=== PATIENT | male | born 1945 | race Caucasian/White ===

== ENCOUNTER 2017-08-06 17:08 | Emergency (ER) | payer OTHER, SELFPAY ==
--- NOTE | 2017-08-06 17:34 | DI.RAD.S_ITS ---
PROCEDURE: XR FINGER LT MIN 2V INDICATIONS: bandsaw injury to distal end of 2 nd digit TECHNIQUE: AP hand, 2 views of the second finger(s) acquired. COMPARISON: None. FINDINGS: Bones: No fractures or dislocations. No suspicious bony lesions. Soft tissues: No suspicious soft tissue calcifications. IMPRESSION: No fracture or foreign body seen. Dictated by: David Valdivia M.D. on 08/06/2017 at 18:01 Approved by: David Valdivia M.D. on 08/06/2017 at 18:01
[2017-08-06 17:36] VITALS: BP 147/71; PULSE 70; RESP 18; TEMP 36.4; O2SAT 98
--- NOTE | 2017-08-06 17:41 | PC.NURSE ---
approx 3 cm lac to lt 2nd digit from band saw, bleeding controlled, distal cms intact, pt reports tdap utd
--- NOTE | 2017-08-06 18:09 | ED_ITS ---
HPI - Extremity Injury (Upper) General Chief Complaint: Extremity Injury, Upper Stated Complaint: wound index finger left hand from a band saw Time Seen by Provider: 08/06/17 17:42 Source: patient Mode of arrival: ambulatory Limitations: no limitations History of Present Illness HPI narrative: 71-year-old male here for evaluation of left index finger injury. Patient was using a band saw to open a plastic package when he cut his finger. Patient states he is up-to-date on his tetanus. He came into the emergency department for further evaluation and treatment. Related Data Home Medications Medication Instructions Recorded Confirmed tamsulosin [Flomax] #0 09/14/16 Allergies Allergy/AdvReac Type Severity Reaction Status Date / Time Penicillins [PENICILLINS] Allergy Unknown Unverified 06/05/17 12:11 Review of Systems Constitutional Denies chills, Denies fever(s), Denies lethargy and Denies weakness Musculoskeletal Comments: Pain to the tip of the left index finger Integumentary/Breasts Comments: cut the tip of his index finger left hand Neurologic Denies weakness Comments: no numbness and tingling left hand Hematologic/Lymphatic Denies easy bruising Exam Initial Vital Signs Initial Vital Signs: Vital Signs Temperature 97.6 F 08/06/17 17:36 Pulse Rate 70 08/06/17 17:36 Respiratory Rate 18 08/06/17 17:36 Blood Pressure 147/71 H 08/06/17 17:36 Pulse Oximetry 98 08/06/17 17:36 Cardio Pulses: radial pulses present Skin Other: patient with a 3 cm laceration to the palmar aspect of his left index finger distal to the PIP joint. Does not involve the nail bed. Neuro Other: sensation intact to light touch left upper extremity Extrem Other: Full range of motion of left index finger MCP PIP PIP joint Procedures Laceration Repair Laceration 1: Site: hand ( left index finger) Side (If applicable): left Size (cm): 3 Description: linear Depth: simple, single layer Local Anesthetic: lidocaine 1% Amount of anesthesia used (mL): 2 Pre-repair: wound explored, irrigated extensively and deep structures intact Skin layer closed with: nylon Size (cm): 4-0 Number of sutures: 7 Technique: simple, interrupted Course Orders Ordered: Discontinued Medications Bacitracin (Bacitracin) 1 applic TOP NOW ONE Stop: 08/06/17 19:02 Vital Signs - 8 hr 08/06/17 17:36 Temperature 97.6 F Pulse Rate 70 Respiratory Rate 18 Blood Pressure 147/71 H Pulse Oximetry 98 MDM - Extremity Injury (Upper) Imaging Data left and x-ray: Radiologist's impression: PROCEDURE: XR FINGER LT MIN 2V INDICATIONS: bandsaw injury to distal end of 2 nd digit TECHNIQUE: AP hand, 2 views of the second finger(s) acquired. COMPARISON: None. FINDINGS: Bones: No fractures or dislocations. No suspicious bony lesions. Soft tissues: No suspicious soft tissue calcifications. IMPRESSION: No fracture or foreign body seen. Dictated by: David Valdivia M.D. on 08/06/2017 at 18:01 [facility] Narrative Medical decision making narrative: neurovascularly intact. Up-to-date on tetanus. Wound closed as above. Patient is given care instructions. He is given return precautions. He expressed understanding and agreement with plan patient informed that there would be a scar. Discharge Plan Departure Patient Disposition: Home, Self-Care Clinical Impression: Finger laceration Discharge Date/Time: 08/06/17 19:17 Interventions: ED Discharge Assessment Last Done: 08/06/17 19:17 Instructions: How to Care for a Laceration After Repair, How to Care for a Surgical Wound-Stitches Activity Restrictions/Additional Instructions: the stitches do need to be removed in 7-10 days. Keep your finger clean and dry. You can shower like normal and wash your hands with soap and water however do not soak your hand anything. Return to the emergency department for any new symptoms, redness, worsening pain, or any other signs of infection. Prescriptions: No Action tamsulosin [Flomax] 0.4 MG capsule,extended release 24hr Qty: 0 RF: 0
== END 2017-08-06 19:17 | disposition home or self-care (01) ==
PROVIDERS: Emergency Provider Emergency Medicine; Family Provider Internal Medicine; PCP Internal Medicine
DX: S61.211A Laceration without foreign body of left index finger without damage to nail, initial encounter (principal); W31.2XXA Contact with powered woodworking and forming machines, initial encounter
CPT/HCPCS: 12002; 73140; 99282; 99283

== ENCOUNTER → 2017-10-17 07:33 | Outpatient (CLI) | payer OTHER, SELFPAY ==
[2017-10-17 08:17] LABS: Add Manual Diff / Slide Review NO; Basophils Percent Auto 0.8 % (0-2); Eosinophils Percent Auto 2.5 % (2-4); Hematocrit 41.4 % (41-53); Hemoglobin 14.2 g/dL (13.5-17.5); Lymphocytes Percent Auto 11.1 % (25-40); Mean Corpuscular HGB Conc 34.2 % (30-36); Mean Corpuscular Hemoglobin 27.9 PG (26-34); Mean Corpuscular Volume 81.6 fL (80-100); Monocytes Percent Auto 11.8 % (3-14); Neutrophils Absolute Auto 3900 /uL (3000-5900); Neutrophils Percent Auto 73.8 % (50-75); Platelet Count 302 X10^3/uL (150-400); Red Blood Cell Count 5.08 X10^6/uL (4.5-5.9); Red Cell Distribution Width 15.7 % (11.6-14.8); White Blood Cell Count 5.2 X10^3/uL (4.5-11.0)
[2017-10-17 08:32] LABS: Alanine Aminotransferase 22 IU/L (21-72); Albumin 4.2 g/dL (3.5-5.0); Albumin Globulin Ratio 1.1 (1.0-2.8); Alkaline Phosphatase 93 U/L (38-126); Aspartate Aminotransferase 27 IU/L (17-59); BUN Creatinine Ratio 22.5 (6-22); Bilirubin Total 0.5 mg/dL (0.2-1.3); Blood Urea Nitrogen 18 mg/dL (9-20); Calcium 9.4 mg/dL (8.4-10.2); Carbon Dioxide 34 mmol/L (22-32); Chloride 94 mmol/L (98-107); Cholesterol 167 mg/dL (140-199); Estimated Glomerular Filt Rate > 60.0 mL/min (>60); Globulin 3.9 g/dL (1.7-4.1); Glucose 102 mg/dL (80-110); HDL Cholesterol 47 mg/dL (40-60); HEMOLYSIS < 15 (0-50); LDL Cholesterol Calculated 111 mg/dL (<100); Potassium 4.9 mmol/L (3.4-5.1); Sodium 133 mmol/L (137-145); Total Protein 8.1 g/dL (6.3-8.2); Triglycerides 47 mg/dL (35-150)
[2017-10-17 08:59] LABS: Thyroid Stimulating Hormone 2.64 uIU/mL (0.47-4.68)
[2017-10-17 11:48] LABS: B Type Natriuretic Peptide 99.9 (<100)
== END ==
PROVIDERS: Family Provider Internal Medicine; PCP Internal Medicine; Visit Provider Internal Medicine Cardiovascular Disease
DX: R00.2 Palpitations (principal); R06.09 Other forms of dyspnea; R01.1 Cardiac murmur, unspecified; Z13.220 Encounter for screening for lipoid disorders
CPT/HCPCS: 36415; 80053; 80061; 83735; 83880; 84443; 85025

== ENCOUNTER 2018-04-02 13:56 | Day surgery (SDC) | payer OTHER, SELFPAY ==
--- NOTE | 2018-04-02 | PATH_ITS ---
[facility] Accession Number: [id number] . 01 Material submitted: . PART A: CECAL POLYP PART B: CECAL POLYP PART C: ASCENDING COLON POLYP . 02 Diagnosis: A. Cecal Polyp: Tubular adenoma; negative for high-grade dysplasia. . B. Cecum, Polyp: Multiple portions of tubular adenoma; negative for high-grade dysplasia. . C. Ascending Colon Polyp: Tubular adenoma; negative for high-grade dysplasia. . MRV/04/07/2018 . 02 Electronically signed: . Ethel Pham MD, Pathologist NPI- [id number] . 01 Gross description: . Part A: CECAL POLYP: Received in formalin is 1 fragment(s) of adler, soft tissue measuring 1.3 x 0.3 x 0.3 cm submitted entirely in 1 cassette(s) Part B: CECAL POLYP: Received in formalin are multiple fragment(s) of adler, soft tissue measuring 1.7 x 1.2 x 0.3 cm in aggregate submitted entirely in 1 cassette(s) Part C: ASCENDING COLON POLYP: Received in formalin are 2 fragment(s) of adler, soft tissue measuring 0.5 x 0.2 x 0.2 cm to 0.4 x 0.4 x 0.2 cm submitted entirely in 1 cassette(s) /CKI /CKI . 02 Pathologist provided ICD-10: K63.5 . 02 CPT . 944123, 789917, 890217 Performed at: 01 [facility] [address] [id number] MD Aime Can MD Phone: [phone] Performed at: 02 [facility] [address] [place], [place] [id number] MD Lauren Darby MD Phone: [phone]
--- NOTE | 2018-04-02 12:50 | P.HP_ITS ---
History of Present Illness Date Patient Seen: 04/02/18 Chief complaint: [id number] SCREENING COLONOSCOPY Narrative: 72-year-old male seen at our clinic for preop evaluation on 03/18/2017. He has a personal history of colon polyps and a family history of colon cancer in his father. His COPD appears stable at this time and there had been no significant changes to his clinical condition since his office visit. Meds Home Medications Medication Instructions Recorded Confirmed Type Cialis 2.5 mg PO DAILY 04/02/18 04/02/18 History omeprazole 20 mg PO DAILY 04/02/18 04/02/18 History rosuvastatin 20 mg PO DAILY 04/02/18 04/02/18 History Allergies Allergy/AdvReac Type Severity Reaction Status Date / Time iodine Allergy Severe Hives Verified 04/02/18 14:20 Penicillins [PENICILLINS] Allergy Unknown Verified 04/02/18 14:20 morphine AdvReac Severe Hallucinati Verified 04/02/18 14:20 ng Exam Narrative Exam Narrative: General: Patient is well developed, not in apparent distress Cardiovascular: Regular rate and rhythm, no murmurs, rubs, or gallops; no evidence of edema; no palpable abdominal aortic aneurysm Gastrointestinal: Normoactive bowel sounds, soft, nontender, nondistended, no rebound tenderness, no hepatosplenomegaly, no evidence of hernia Assessment & Plan Assessment Narrative: 72-year-old male with history of COPD who is here for colon polyp surveillance. There is a family history of colon cancer in his father. Last colonoscopy performed in 2013 showed no polyps Regarding the procedure(s), the risks and potential complications, benefits, and alternatives (including not doing the procedure) were discussed with the dylan montes. The risks include but are not limited to bleeding, splenic injury, infection, perforation which may require surgical intervention, missed lesions, and adverse reactions to sedative medicines. After a question and answer period, the patient agreed to proceed with the procedure(s) and gives informed consent.
[2018-04-02 14:11] VITALS: BMI 20.2
[2018-04-02 14:17] VITALS: BP 158/81; PULSE 95; RESP 16; TEMP 36.1; O2SAT 95
[2018-04-02] MEDS: SODIUM CHLORIDE 0.9% 1,000 ML 70 ML IV (14:20)
[2018-04-02] MEDS: fentaNYL 250 MCG/5 ML INJ IV (15:00)
[2018-04-02] MEDS: MIDAZOLAM 5 MG/5 ML VIAL IV (15:01)
[2018-04-02 15:28] VITALS: BP 124/77; PULSE 82; RESP 22; TEMP 36.1; O2SAT 98
[2018-04-02 15:33] VITALS: BP 127/75; PULSE 97; RESP 14; O2SAT 98
--- NOTE | 2018-04-02 15:34 | P.OP.ENDO_ITS ---
Operative Date/Time/Diagnoses Date of procedure: 04/02/18 Procedure Notes Procedure in detail: Surgeon: Artemio Valdivia MD Procedure: Colonoscopy with endoscopic mucosal resection and biopsy Preoperative diagnosis: Colon polyp surveillance Postoperative diagnosis: 3 colon polyps status post polypectomy and EMR, left- sided diverticulosis, grade 2 internal hemorrhoids Medications: Conscious sedation using 5 mg IV of Midazolam and 250 mcg IV of Fentanyl Preanesthesia Assessment An H and P was performed/updated and the Px?s ASA class is 2. The procedure was discussed in detail with the patient. The potential risks and complications including infection, bleeding, missed lesions, perforation, need for surgery in case of perforation, prolonged hospital stay, and were explained. A brief question and answer period was allotted and once all questions were answered, informed consent was obtained. The patient was brought back to the procedure room and placed on standard monitoring. The patient?s vital signs were monitored continuously throughout the entire procedure. Prior to starting, a timeout was performed to confirm the patient?s identity, allergies, medications, and procedure. Procedure in detail The patient was placed in left lateral decubitus position and once adequate sedation was obtained a BETH was performed. The digital rectal examination did not reveal any palpable lesions. The tip of the colonoscope was placed in the anal canal and advanced to the sigmoid colon where there was some difficulty maneuvering due to tight angulations and limited mobility. The tip of the colonoscope was able to pass this area with scope reduction and torsion and was advanced all the way to the cecum which was identified by the appendiceal orifice and the ileocecal valve. Careful examination of all garcia of the colon was performed with irrigation of any residual stool. In the cecum, there was note of a 6 mm sessile polyp which was removed in its entirety by means of cold snare. Resection and retrieval were complete with minimal bleeding In the cecum, there was note of a 20 mm sessile polyp which was removed by means of endoscopic mucosal resection. Saline/spot ink lift was performed to define the borders of the polyp and it was removed by means of hot snare. There was no residual bleeding at the resection site. Retrieval of the polyp was complete In the ascending colon, there is note of a 2 mm sessile polyp which was removed by means of cold Jumbo forceps. Resection and retrieval was complete with minimal bleeding. In the left colon, there is note of multiple medium to large diverticula Retroflexion was performed in the colon which revealed grade 2 internal hemorrhoids The patient tolerated the procedure well and will be brought back to the recovery area to be discharged once criteria are met. The prep was judged to be good/excellent and adequate to identify polyps less than 5 mm. The withdrawal time was 16 min. The total physician intraservice time was 31 min. Complications There were no complications and estimated blood loss was minimal. Recommendations: Resume previous diet Continue outPx medications Avoid aspirin or NSAID use for the next 2 weeks Follow up pathology results Repeat colonoscopy in 1 year An emergency contact number was given to the patient for any complications related to the procedure
--- NOTE | 2018-04-02 15:35 | PM.DS.1 ---
History of Present Illness Chief complaint: [id number] SCREENING COLONOSCOPY Narrative: 72-year-old male seen at our clinic for preop evaluation on 03/18/2017. He has a personal history of colon polyps and a family history of colon cancer in his father. His COPD appears stable at this time and there had been no significant changes to his clinical condition since his office visit. Discharge Providers Primary care physician: Shaun Forbes MD Discharge provider: Artemio Valdivia MD Discharge Date: 04/02/18 Exam Vital Signs (past 8 hours): - 04/02/18 14:17 04/02/18 15:28 Temperature 96.9 F L 97.0 F L Pulse Rate 95 H 82 Respiratory Rate 16 22 Blood Pressure 158/81 H 124/77 Pulse Oximetry 95 98 Oxygen Delivery Method Room Air Narrative Exam Narrative: General: Patient is well developed, not in apparent distress Cardiovascular: Regular rate and rhythm, no murmurs, rubs, or gallops; no evidence of edema; no palpable abdominal aortic aneurysm Gastrointestinal: Normoactive bowel sounds, soft, nontender, nondistended, no rebound tenderness, no hepatosplenomegaly, no evidence of hernia Discharge Plan Discharge Plan Patient Disposition: Home Discharge comment: you will be discharged with a copy of your procedure report Discharge Med Rec/Prescriptions Prescriptions: Continued omeprazole 20 mg PO DAILY RF: 0 rosuvastatin 20 mg PO DAILY RF: 0 Cialis 2.5 mg PO DAILY RF: 0 Follow up/Referrals: Shaun Forbes MD [Primary Care Provider] - Discharge Orders: Discharge (Order); Ordered 04/02/18 Ordered By: Artemio Valdivia Provider Discharge Instructions Diet: Diet as Tolerated Visit Report/Discharge Packet Stand Alone Forms: Colonoscopy Result: [facility], Surgery Discharge Discharge Data Primary Care Provider: Shaun Forbes V Attending Provider: Artemio Valdivia
[2018-04-02 15:39] VITALS: BP 114/64; PULSE 75; RESP 15; TEMP 36.3; O2SAT 99
[2018-04-02 15:55] VITALS: BP 140/67; PULSE 79; RESP 17; TEMP 36.2; O2SAT 97
== END 2018-04-02 16:04 | disposition home or self-care (01) ==
PROVIDERS: Family Provider Internal Medicine; PCP Internal Medicine; Visit Provider Internal Medicine Gastroenterology
PROC: 0DJD8ZZ Inspection of Lower Intestinal Tract, Via Natural or Artificial Opening Endoscopic (ICD-10-PCS; CPT 45378; principal; 2018-04-02 15:00)
DX: Z86.010 Personal history of colon polyps (principal); Z80.0 Family history of malignant neoplasm of digestive organs; J44.9 Chronic obstructive pulmonary disease, unspecified; K57.30 Diverticulosis of large intestine without perforation or abscess without bleeding; K64.1 Second degree hemorrhoids; D12.0 Benign neoplasm of cecum; D12.2 Benign neoplasm of ascending colon
CPT/HCPCS: 45390; 45385; J2250; J3010

== ENCOUNTER 2018-06-16 17:15 | Emergency (ER) | payer OTHER, SELFPAY ==
[2018-06-16 17:17] VITALS: BP 168/81; PULSE 97; RESP 24; TEMP 38.2; O2SAT 96
--- NOTE | 2018-06-16 17:33 | DI.RAD.S_ITS ---
PROCEDURE: XR CHEST 1V INDICATIONS: SHORTNESS OF BREATH TECHNIQUE: One view of the chest was acquired. COMPARISON: [facility], CHEST 2 VIEW, 10/02/2016, 9:50. [facility], CHEST 2 VIEW, 05/13/2017, 11:21. FINDINGS: Surgical changes and devices: None. Lungs and pleura: Mild loss is seen on the left side. There is stable left lung apex pleural thickening seen. There is stable pleural thickening seen on the left inferiorly. The lungs are hyperexpanded. Mediastinum: Mediastinal contours appear normal. Heart size is normal. Bones and chest wall: No suspicious bony lesions. Age-appropriate bony degenerative changes are seen. Overlying soft tissues appear unremarkable. IMPRESSION: Stable plain film examination demonstrating left-sided pleural thickening, with likely scarring at the lung apex and a chronic left-sided pleural effusion. The scheduled chest CT is expected provide additional diagnostic information. Dictated by: Mani Pearson M.D. on 06/16/2018 at 17:15 Approved by: Mani Pearson M.D. on 06/16/2018 at 17:16
--- NOTE | 2018-06-16 17:38 | DI.CT.S_ITS ---
PROCEDURE: CT ANGIO CHEST PE PROTOCOL INDICATIONS: recent flight from [place], hypoxia, hx pulm.fibrosis TECHNIQUE: After the administration of intravenous contrast, 2 mm thick sections acquired from the pulmonary apices to the posterior costophrenic angles. 3-dimensional maximum intensity projection (MIP) coronal and sagittal reformats were then acquired through the thorax. For radiation dose reduction, the following was used: automated exposure control, adjustment of mA and/or kV according to patient size. COMPARISON: [facility], , CHEST 2 VIEW, 05/13/2017, 11:21. [facility], , CHEST 2 VIEW, 10/02/2016, 9:50. [facility] , CT, CHEST W/O CONTRAST, 05/16/2010, 15:33. [facility], , XR CHEST 1V, 06/16/2018, 17:45. FINDINGS: Image quality: Excellent. Pulmonary arteries: Pulmonary arteries are normal in size, and demonstrate no intraluminal filling defects to suggest central pulmonary embolism. Lungs and pleura: There is volume loss in the left hemithorax. There are calcified pleural plaques, predominantly involving the left hemithorax. Bilateral lower lobe loculated pleural effusions are present. A loculated pleural effusion is also seen in the left upper breast. There is left lower lobe round atelectasis. A 7 mm nodule subpleural is present in the right middle lobe, not present on 05/16/1010. Central and peripheral airways are patent. Mediastinum: Heart size is normal, without pericardial effusion. Mildly enlarged mediastinal or right hilar are present measuring up to 1.2 cm in short axis. Thoracic aorta is normal in caliber and enhancement. Esophagus is normal in caliber. There is a small hiatal hernia. Bones and chest wall: No suspicious bony lesions. Old rib fractures are noted bilaterally. Thyroid gland is normal. No axillary or supraclavicular adenopathy. Abdomen: Visualized upper abdominal solid organs appear normal in the early arterial phase of enhancement. There are calcified granulomas in spleen. IMPRESSION: 1. No evidence for central pulmonary embolism. 2. Bilateral lower lobe and left upper lobe loculated pleural effusions. Cannot rule out emphysematous. 3. Calcified pleural plaques bilaterally, probably related to asbestos exposure. Recommend clinical correlation. 4. A 7 mm subpleural nodule in the right middle lobe. Please see enclosed followup recommendation. 5. Mild mediastinal and right hilar lymphadenopathy, most likely reactive. 5. Remote granulomatous infection of spleen. 6. Small hiatal hernia. Fleischner Society criteria for SOLID lung nodule followup. Nodule size (mm)Low-risk patientHigh-risk patient?4No follow-up neededFollow-up at 12 mo; if no change, no further follow-up>[id number] CT at 12 mo; if no change, no further follow-up needed.Initial follow-up CT at 6-12 mo, then 18-24 mo if no change. >6-8Initial follow-up CT at 6-12 mo, then 18-24 mo if no change. Initial follow-up CT at 3-6 mo, then 9-12 mo and 24 mo if no change. >8Follow-up CT at 3, 9, 24 mo. Or PET and/or biopsy.Same as for low-risk pts. Fleischner Society criteria for SUB-SOLID lung nodule followup. Solitary pure ground-glass nodules5 mm or lessNo followup needed. >5 mm3 mo follow-up CT to confirm persistence. Then annual CT for 3 years. Part-solid nodules3 mo follow-up CT to confirm persistence. If persistent with solid component <5 mm, annual CT for at least 3 years. If solid component is 5 mm or more, biopsy or surgical resection. Consider PET-CT for lesions > 10 mm. Multiple sub-solid nodulesPure ground glass nodules [address] at 2 and 4 years. Pure ground glass nodules >5 mm without dominant lesion. [address] to confirm persistence, then annual followup CT for at least 3 years. Dominant nodule(s) with part-solid or solid component. [address] to confirm persistence. If persistent, consider biopsy or surgical resection, jojo if lesions have >5 mm solid component. Dictated by: Roni Reveles M.D. on 06/16/2018 at 19:08 Approved by: Roni Reveles M.D. on 06/16/2018 at 19:29
[2018-06-16] MEDS: SODIUM CHLORIDE 0.9% 1,000 ML 1000 ML IV (17:51)
[2018-06-16] MEDS: diphenhydrAMINE 50 MG/ML VIAL 25 MG IV (17:52)
[2018-06-16] MEDS: methylPREDNISolone 125 MG/2 ML VIAL IV (17:53)
[2018-06-16 18:17] LABS: Add Manual Diff / Slide Review NO; Basophils Absolute Auto 0 /uL (0-100); Basophils Percent Auto 0.5 % (0-2); Eosinophils Absolute Auto 0 /uL (0-450); Eosinophils Percent Auto 0.3 % (2-4); Hematocrit 40.8 % (41-53); Hemoglobin 13.6 g/dL (13.5-17.5); Lymphocytes Absolute Auto 300 /uL (1100-4500); Lymphocytes Percent Auto 6.1 % (25-40); Mean Corpuscular HGB Conc 33.4 % (30-36); Mean Corpuscular Hemoglobin 26.8 PG (26-34); Mean Corpuscular Volume 80.2 fL (80-100); Monocytes Absolute Auto 500 /uL (0-900); Monocytes Percent Auto 10.8 % (3-14); Neutrophils Absolute Auto 4000 /uL (1500-7000); Neutrophils Percent Auto 82.3 % (50-75); Platelet Count 219 X10^3/uL (150-400); Red Blood Cell Count 5.09 X10^6/uL (4.5-5.9); Red Cell Distribution Width 15.4 % (11.6-14.8); White Blood Cell Count 4.9 X10^3/uL (4.5-11.0)
[2018-06-16 18:18] LABS: INR 1.2 (0.9-1.3); Prothrombin Time 13.9 SECONDS (10.1-12.7)
[2018-06-16 18:21] LABS: PTT Partial Thromboplastin Tim 38 SECONDS (26.4-36.2)
[2018-06-16 18:23] LABS: B Type Natriuretic Peptide 116 (<100)
[2018-06-16 18:26] LABS: Alanine Aminotransferase 15 IU/L (21-72); Albumin 4.2 g/dL (3.5-5.0); Albumin Globulin Ratio 1.1 (1.0-2.8); Alkaline Phosphatase 86 U/L (38-126); Aspartate Aminotransferase 29 IU/L (17-59); Bilirubin Total 0.4 mg/dL (0.2-1.3); Blood Urea Nitrogen 16 mg/dL (9-20); Calcium 8.6 mg/dL (8.4-10.2); Carbon Dioxide 28 mmol/L (22-32); Chloride 91 mmol/L (98-107); Estimated Glomerular Filt Rate > 60.0 mL/min (>60); Globulin 3.9 g/dL (1.7-4.1); Glucose 106 mg/dL (80-110); HEMOLYSIS < 15 (0-50); Lactate (Lactic Acid) 1.1 mmol/L (0.7-2.1); Potassium 4.5 mmol/L (3.4-5.1); Sodium 129 mmol/L (137-145); Total Protein 8.1 g/dL (6.3-8.2)
[2018-06-16 18:28] VITALS: BP 157/83; PULSE 84; RESP 22; O2SAT 99
--- NOTE | 2018-06-16 18:28 | ED.SOB ---
HPI - SOB/Dyspnea General Chief Complaint: Shortness of Breath/Dyspnea Stated Complaint: weakness and trouble breathing Time Seen by Provider: 06/16/18 17:38 Source: patient and family Mode of arrival: ambulatory Limitations: no limitations History of Present Illness A 72-year-old male nonsmoker with history of bladder cancer and chronic, mild pleural effusions presents with day or 2 of some runny nose and cough and exertional shortness of breath. he denies any chest pain. He is not dizzy nor weak or lightheaded. He denies any fever or chills. He has had no nausea, vomiting or diarrhea. He has felt a bit under the weather and has had a decreased appetite. He denies any rashes. He has no cough dysuria, frequency or urgency. He denies any history of blood clots but does have some recent travel. On presentation patient pulse oximetry noting dip into the upper 80s which responded quickly to nasal cannula at 1 L MD Complaint: shortness of breath and cough Onset (ago): day(s) Context: recent travel Severity: moderate Consistency/Duration: constant Relieving factors: oxygen and rest Exacerbating factors: exertion Known history of: COPD Treatment prior to arrival: none Related Data Home oxygen amount: none Home Medications Medication Instructions Recorded Confirmed omeprazole 20 mg PO DAILY #0 04/02/18 06/16/18 rosuvastatin 20 mg PO DAILY #0 04/02/18 06/16/18 tadalafil [Cialis] 2.5 mg PO DAILY PRN #0 04/02/18 06/16/18 acetaminophen 650 mg PO .ONCE 06/16/18 06/16/18 multivitamin 1 tab PO DAILY 06/16/18 06/16/18 naproxen sodium [Aleve] 220 mg PO .ONCE 06/16/18 06/16/18 Allergies Allergy/AdvReac Type Severity Reaction Status Date / Time iodine Allergy Severe Hives Verified 04/02/18 14:20 Penicillins [PENICILLINS] Allergy Unknown Verified 04/02/18 14:20 morphine AdvReac Severe Hallucinati Verified 04/02/18 14:20 ng Review of Systems Constitutional Denies chills, Denies fever(s), Denies lethargy and Denies weakness Eyes Denies change in vision, Denies eye discharge, Denies irritation and Denies loss of vision ENT Ears, Nose, Mouth, and Throat: Denies change in voice, Denies neck pain and Denies sore throat Cardiovascular Denies chest pain, Denies irregular heart rhythm, Denies lightheadedness, Denies palpitations, Reports dyspnea, Reports dyspnea on exertion and Denies orthopnea Respiratory Denies cough, Reports dyspnea, Reports dyspnea on exertion and Denies wheezing Gastrointestinal Gastrointestinal: Denies abdominal pain, Denies change in bowel habits, Denies diarrhea, Denies nausea and Denies vomiting Genitourinary Denies hematuria, Denies flank pain, Denies urinary incontinence and Denies urinary urgency Musculoskeletal Denies neck pain Integumentary/Breasts Denies pruritus, Denies erythema, Denies rash and Denies wounds Neurologic Denies confusion, Denies loss of vision and Denies weakness Psychiatric Denies anxiety, Denies confusion, Denies depression, Denies homicidal ideation and Denies suicidal ideation Endocrine Denies palpitations Hematologic/Lymphatic Denies easy bruising Allergic/Immunologic Denies wheezing [facility] Social History household members: spouse Smoking Status: Never smoker Social History household members: spouse Smoking Status: Never smoker Exam Narrative Exam Narrative: GENERAL: 72M appears to be a bit SOB, HEAD: Atraumatic. Normocephalic. No temporal or scalp tenderness. EYES: Pupils equal round and reactive. Extraocular motions intact. No scleral icterus. No injection or drainage. ENT: Nose without bleeding, purulent drainage or septal hematoma. Throat without erythema, tonsillar hypertrophy or exudate. Uvula midline. Airway patent. NECK: Trachea midline. No JVD or lymphadenopathy. Supple, nontender, no meningeal signs. CARDIOVASCULAR: Regular rate and rhythm without murmurs, gallops, or rubs. RESPIRATORY: Clear to auscultation. Breath sounds equal bilaterally. No wheezes, rales, or rhonchi. GASTROINTESTINAL: Abdomen soft, non-tender, nondistended. No hepato-splenomegaly, or palpable masses. No guarding. EXTREMITIES: No clubbing, cyanosis, or edema. No joint tenderness, effusion, or edema noted. BACK: Nontender without deformity or crepitance. No flank tenderness. NEURO: AOx3. SKIN: No rash or erythema. Initial Vital Signs Initial Vital Signs: Vital Signs Temperature 100.8 F H 06/16/18 17:17 Pulse Rate 97 H 06/16/18 17:17 Respiratory Rate 24 06/16/18 17:17 Blood Pressure 168/81 H 06/16/18 17:17 Pulse Oximetry 96 06/16/18 17:17 Const General: cooperative and well developed Nutritional Appearance: well nourished Orientation: alert, awake, oriented x3 and not confused HENSC Head: normocephalic and atraumatic Ears: external ears normal and TM's normal bilaterally Nose: external nose normal and No nasal discharge Face and sinus: sinuses nontender, face symmetric, no sinus tenderness and No dry mucous membranes Mouth: oral mucosae normal and moist mucous membranes Teeth and gingiva: dentition normal Throat: tonsils normal and uvula midline Eyes General: appearance normal, both eyes and all related structures Eyelids: eyelids normal Conjunctivae: conjunctivae normal Sclera: sclerae normal Pupils: PERRL EOM: EOM intact bilaterally Neck Neck: normal visual inspection, trachea midline, No lymphadenopathy, No midline deformity and No JVD Lymphatic: No lymphedema Chest Chest: normal inspection of the chest Resp Effort & Inspection: normal respiratory effort, able to speak in complete sentences, no respiratory distress and no use of accessory muscles Auscultation: clear to auscultation bilaterally, no rales, no rhonchi and no wheezes Cardio Rate: regular rate Rhythm: regular rhythm Heart Sounds: no click, no gallops, no murmurs and no rubs Pulses: normal peripheral pulses GI Inspection: non-distended Palpation: soft, no hepatosplenomegaly, No guarding, No pulsatile mass and No tender Auscultation: normal bowel sounds Back/Spine/Pelvis Back: No CVA tenderness Cervical Spine: cervical ROM normal and No pain with cervical ROM Thoracic/Lumbar Spine: thoracic and lumbar spine normal to inspection Skin General: no rashes or lesions noted, No jaundice and No petechiae Neuro General: alert, oriented x3, gait normal and no focal motor deficits Speech: speech normal Extrem General: full ROM, no clubbing, cyanosis or edema, no pedal edema and no calf tenderness Psych Appearance: well kempt Mental Status: mental status grossly normal Attitude: cooperative Thought Content: normal and suicidality Judgment: judgment good Course Orders Ordered: ED Orders 06/16/18 18:15 Blood Culture Stat Discontinued Medications Diphenhydramine HCl (Benadryl) 25 mg IV NOW ONE Stop: 06/16/18 17:47 Last Admin: 06/16/18 17:52 Dose: 25 mg Sodium Chloride (Normal Saline 0.9%) 1,000 mls @ 1,000 mls/hr IV BOLUS ONE Stop: 06/16/18 18:37 Last Infusion: 06/16/18 19:55 Dose: 0 mls/hr Admin: 06/16/18 17:51 Dose: 1,000 mls/hr Methylprednisolone (Solu-Medrol 125 Mg Vial) 125 mg IV NOW ONE Stop: 06/16/18 17:47 Last Admin: 06/16/18 17:53 Dose: 125 mg Reevaluation(s) Reevaluation #1: patient feeling much better after above stated therapies. He's able to make two laps through department off O2. First lap he felt pretty good and had sats in the mid 90s. Second lap he dropped to 89% but that is as low as it went Vital Signs - 8 hr 06/16/18 19:32 06/16/18 20:00 06/16/18 20:30 Pulse Rate 91 H 89 Respiratory Rate 20 22 Blood Pressure [Right Arm] 139/65 133/64 128/70 Pulse Oximetry 98 97 06/16/18 20:47 Pulse Rate 94 H Respiratory Rate 22 Blood Pressure [Right Arm] Pulse Oximetry 89 L MDM - SOB/Dyspnea Lab Data Result diagrams: 06/16/18 17:46 06/16/18 17:46 Lab Results 06/16/18 06/16/18 06/16/18 Range/Units 17:46 17:46 17:46 WBC 4.9 (4.5-11.0) X10^3/uL RBC 5.09 (4.5-5.9) X10^6/uL Hgb 13.6 (13.5-17.5) g/dL Hct 40.8 L (41-53) % MCV 80.2 (80-100) fL MCH 26.8 (26-34) PG MCHC 33.4 (30-36) % RDW 15.4 H (11.6-14.8) % Plt Count 219 (150-400) X10^3/uL Neut % (Auto) 82.3 H (50-75) % Lymph % (Auto) 6.1 L (25-40) % [place] % (Auto) 10.8 (3-14) % Eos % (Auto) 0.3 L (2-4) % Baso % (Auto) 0.5 (0-2) % Neut # (Auto) 4000 (3581-5366) /uL Lymph # (Auto) 300 L (1402-6504) /uL [place] # (Auto) 500 (0-900) /uL Eos # (Auto) 0 (0-450) /uL Baso # (Auto) 0 (0-100) /uL PT (10.1-12.7) SECONDS INR (0.9-1.3) APTT (26.4-36.2) SECONDS Sodium 129 L (137-145) mmol/L Potassium 4.5 (3.4-5.1) mmol/L Chloride 91 L (98-107) mmol/L Carbon Dioxide 28 (22-32) mmol/L BUN 16 (9-20) mg/dL Creatinine 0.80 (0.66-1.25) mg/dL Estimated GFR > 60.0 (>60) mL/min BUN/Creatinine Ratio 20.0 (6-22) Glucose 106 (80-110) mg/dL Lactate 1.1 (0.7-2.1) mmol/L Calcium 8.6 (8.4-10.2) mg/dL Total Bilirubin 0.4 (0.2-1.3) mg/dL AST 29 (17-59) IU/L ALT 15 L (21-72) IU/L Alkaline Phosphatase 86 (38-126) U/L Total Creatine Kinase (55-170) U/L CK-MB (CK-2) CK-MB (CK-2) Rel Index Troponin I (0.01-0.034) ng/mL B-Natriuretic Peptide (<100) Total Protein 8.1 (6.3-8.2) g/dL Albumin 4.2 (3.5-5.0) g/dL Globulin 3.9 (1.7-4.1) g/dL Albumin/Globulin Ratio 1.1 (1.0-2.8) Procalcitonin (<0.5) ng/mL Influenza A & B (PCR) (Negative) 06/16/18 06/16/18 06/16/18 Range/Units 17:46 17:46 17:46 WBC (4.5-11.0) X10^3/uL RBC (4.5-5.9) X10^6/uL Hgb (13.5-17.5) g/dL Hct (41-53) % MCV (80-100) fL MCH (26-34) PG MCHC (30-36) % RDW (11.6-14.8) % Plt Count (150-400) X10^3/uL Neut % (Auto) (50-75) % Lymph % (Auto) (25-40) % [place] % (Auto) (3-14) % Eos % (Auto) (2-4) % Baso % (Auto) (0-2) % Neut # (Auto) (1525-2810) /uL Lymph # (Auto) (0592-0550) /uL [place] # (Auto) (0-900) /uL Eos # (Auto) (0-450) /uL Baso # (Auto) (0-100) /uL PT 13.9 H (10.1-12.7) SECONDS INR 1.2 (0.9-1.3) APTT 38 H (26.4-36.2) SECONDS Sodium (137-145) mmol/L Potassium (3.4-5.1) mmol/L Chloride (98-107) mmol/L Carbon Dioxide (22-32) mmol/L BUN (9-20) mg/dL Creatinine (0.66-1.25) mg/dL Estimated GFR (>60) mL/min BUN/Creatinine Ratio (6-22) Glucose (80-110) mg/dL Lactate (0.7-2.1) mmol/L Calcium (8.4-10.2) mg/dL Total Bilirubin (0.2-1.3) mg/dL AST (17-59) IU/L ALT (21-72) IU/L Alkaline Phosphatase (38-126) U/L Total Creatine Kinase 94 (55-170) U/L CK-MB (CK-2) TNP CK-MB (CK-2) Rel Index TNP Troponin I < 0.012 (0.01-0.034) ng/mL B-Natriuretic Peptide (<100) Total Protein (6.3-8.2) g/dL Albumin (3.5-5.0) g/dL Globulin (1.7-4.1) g/dL Albumin/Globulin Ratio (1.0-2.8) Procalcitonin < 0.05 (<0.5) ng/mL Influenza A & B (PCR) (Negative) 06/16/18 06/16/18 Range/Units 17:46 17:46 WBC (4.5-11.0) X10^3/uL RBC (4.5-5.9) X10^6/uL Hgb (13.5-17.5) g/dL Hct (41-53) % MCV (80-100) fL MCH (26-34) PG MCHC (30-36) % RDW (11.6-14.8) % Plt Count (150-400) X10^3/uL Neut % (Auto) (50-75) % Lymph % (Auto) (25-40) % [place] % (Auto) (3-14) % Eos % (Auto) (2-4) % Baso % (Auto) (0-2) % Neut # (Auto) (4933-7138) /uL Lymph # (Auto) (1642-8179) /uL [place] # (Auto) (0-900) /uL Eos # (Auto) (0-450) /uL Baso # (Auto) (0-100) /uL PT (10.1-12.7) SECONDS INR (0.9-1.3) APTT (26.4-36.2) SECONDS Sodium (137-145) mmol/L Potassium (3.4-5.1) mmol/L Chloride (98-107) mmol/L Carbon Dioxide (22-32) mmol/L BUN (9-20) mg/dL Creatinine (0.66-1.25) mg/dL Estimated GFR (>60) mL/min BUN/Creatinine Ratio (6-22) Glucose (80-110) mg/dL Lactate (0.7-2.1) mmol/L Calcium (8.4-10.2) mg/dL Total Bilirubin (0.2-1.3) mg/dL AST (17-59) IU/L ALT (21-72) IU/L Alkaline Phosphatase (38-126) U/L Total Creatine Kinase (55-170) U/L CK-MB (CK-2) CK-MB (CK-2) Rel Index Troponin I (0.01-0.034) ng/mL B-Natriuretic Peptide 116 H (<100) Total Protein (6.3-8.2) g/dL Albumin (3.5-5.0) g/dL Globulin (1.7-4.1) g/dL Albumin/Globulin Ratio (1.0-2.8) Procalcitonin (<0.5) ng/mL Influenza A & B (PCR) Negative (Negative) MDM Narrative Medical decision making narrative: Multiple etiologies for patient's symptoms considered including: [Myocardial infarction, pulmonary embolism, pneumonia, pleural effusion, heart failure exacerbation of chronic underlying problem versus] Patient's symptoms improved or duration of stay with above-stated therapies. Patient has an appointment with his pulmonary doctor in 2 days Findings and discharge diagnosis discussed with patient/family followed by verbalization of understanding Return precautions discussed with patient/family whom verbalize understanding. Discharge Plan Departure Patient Disposition: Home Clinical Impression: Dyspnea on exertion Upper respiratory infection Qualifiers: URI type: unspecified viral URI Qualified Code(s): J06.9 - Acute upper respiratory infection, unspecified Discharge Date/Time: 06/16/18 21:10 Interventions: ED Discharge Assessment Last Done: 06/16/18 21:10 Instructions: DI for Shortness of Breath Activity Restrictions/Additional Instructions: *You have been diagnosed with [ shortness of breath, likely due to viral upper respiratory infection. Likely dehydration as well. ] *What to do: *Take medications as directed *Follow up with your primary care provider in 2-3 days, call for an appointment. Let them know you were seen in the Emergency Department and that we ask that you be seen in follow up *Return to ER if you should have any new, worsening or concerning symptoms Prescriptions: No Action rosuvastatin 20 mg Tablet 20 mg PO DAILY Qty: 0 RF: 0 omeprazole 20 mg Tablet,Delayed Release (Dr/Ec) 20 mg PO DAILY Qty: 0 RF: 0 tadalafil [Cialis] 2.5 mg Tablet 2.5 mg PO DAILY PRN (Reason: erectile dysfunciton) Qty: 0 RF: 0 multivitamin Tablet 1 tab PO DAILY RF: 0 acetaminophen 325 mg Tablet 650 mg PO .ONCE RF: 0 naproxen sodium [Aleve] 220 mg Tablet 220 mg PO .ONCE RF: 0 Referrals: Shaun Forbes MD [Primary Care Provider] -
[2018-06-16 18:31] LABS: Creatine Kinase 94 U/L (55-170)
[2018-06-16 18:35] LABS: Influenza A and B by PCR Rapid Negative (Negative)
[2018-06-16 19:01] LABS: Troponin I < 0.012 ng/mL (0.01-0.034)
[2018-06-16 19:03] LABS: Procalcitonin < 0.05 ng/mL (<0.5)
[2018-06-16 19:32] VITALS: BP 139/65; PULSE 91; RESP 20; O2SAT 98
[2018-06-16 20:00] VITALS: BP 133/64; PULSE 89; RESP 22; O2SAT 97
[2018-06-16 20:30] VITALS: BP 128/70
[2018-06-16 20:47] VITALS: PULSE 94; RESP 22; O2SAT 89
--- NOTE | 2018-06-16 20:47 | PC.NURSE ---
Ambulated around nurses station twice. First loop maintained O2 at 93% Second loop O2 dropped to 89% on Room Air. Pt has shortness of breath upon exertion. Notified Dr. Yoder
== END 2018-06-16 21:10 | disposition home or self-care (01) ==
PROVIDERS: Emergency Medicine; Emergency Provider Emergency Medicine; Family Provider Internal Medicine; PCP Internal Medicine
DX: R06.09 Other forms of dyspnea (principal); J06.9 Acute upper respiratory infection, unspecified; R53.1 Weakness
CPT/HCPCS: 36591; 71045; 71275; 80053; 82550; 83605; 83880; 84145; 84484; 85025; 85610; 85730; 87040; 87400; 93005; 96361; 96374; 96375; 99283; 99284; J1200; J2930

== ENCOUNTER → 2018-12-26 06:47 | Outpatient (CLI) | payer OTHER, SELFPAY ==
--- NOTE | 2018-12-26 | DI.ECHO.S_ITS ---
[facility]---------+ [facility] +---------+ : : [address] : [place] : : : : [id number] : : : : Phone: [phone] Echocardiogram Report + + :Name: RANI DOW Study Date: 12/26/2018 Height: 72 in : :[facility] Weight: 141 lb : : Gender: Male BSA: 1.8 m2 : :: 1945 Age: 73 yrs BP: 124/58 mmHg: :Reason For Study: Aortic valve stenosis : :Ordering Physician: Edwina S : :Osmany Saldana Performed By: Eve Patel : :Referring: Dr. Shaun Forbes : + + Interpretation Summary 1) Normal left ventricular size, thickness, and sysotlic function (EF 60-65%). 2) Normal right ventricular size and function grossly. 3) Moderate to severe aortic stenosis (valve area 1.0cm2, mean gradient 38mmHg, severity ratio 0.24). 4) There is mild to moderate aortic regurgitation. 5) Compared to the Echo done 06/07/2016, aortic stenosis has progressed from moderate to moderate-severe on this study. Procedure: A two-dimensional transthoracic echocardiogram with color flow and Doppler was performed. The study quality was technically adequate. Comparison is made with the echocardiogram of 06-07-16. The patient was in normal sinus rhythm during the exam. Left Ventricle: The left ventricle is normal in size. There is normal left ventricular wall thickness. The ejection fraction is estimated to be 60-65%. There are no obvious focal wall motion abnormalities noted but poor endocardial definition reduces the sensitivity for the detection of such. Diastolic parameters suggest a relaxation abnormality of the left ventricle, consistent with probable normal filling pressures. Right Ventricle: The right ventricle grossly appears normal in size with probable normal systolic function. Atria: The left atrium is moderately dilated. Right atrial size is normal. The interatrial septum is intact with no evidence for an atrial septal defect. Mitral Valve: The mitral valve leaflets appear borderline thickened, but open well. There is mild mitral regurgitation. Aortic Valve: The aortic valve is severely calcified. The aortic valve is not well visualized. There is moderate to severely reduced leaflet mobility. The calculated aortic valve area is 1.0 cm2. The aortic valve area is 0.7 centimeters squared by planimetry. The peak aortic velocity is 4.0 m/sec. The peak aortic velocity on the previous exam was 3.5 m/sec. The aortic valve mean gradient is 38 mmHg. Severity ratio is 0.24. There is moderate to severe aortic stenosis. There is mild to moderate aortic regurgitation. Tricuspid Valve: The tricuspid valve is normal in structure and function. There is mild tricuspid regurgitation. The right ventricular systolic pressure is estimated to be at least 30 mmHg based on an estimated right atrial pressure of 3 mm Hg. Pulmonic Valve: The pulmonic valve is not well seen, but is grossly normal. There is mild pulmonic regurgitation. Great Vessels: The aortic root is mildly dilated. The ascending aorta is at the upper limits of normal in size. The aortic arch is at the upper limits of normal in size. The IVC is of normal diameter and collapses greater than 50% with a sniff. This suggests a low right atrial pressure of 3 mm Hg. Pericardium/ Pleura There is no pericardial effusion. There is no pleural effusion. MMode/2D Measurements & Calculations LVIDd: 5.2 cm LVOT diam: 2.4 cm LVIDs: 3.0 cm Ao root diam: 3.8 cm FS: 42.9 % Aortic Jxn: 3.2 cm EPSS: 0.46 cm asc Aorta Diam: 4.0 cm IVSd: 0.87 cm Ao Arch Diam (Prox Trans): 3.5 cm LVPWd: 1.1 cm LV baker. diameter/BSA (cm/m^2): 2.8 LV sys. diameter/BSA (cm/m^2): 1.6 LA dimension: 3.6 cm RA long axis: 4.1 cm LA A2 area: 26.6 cm2 RA area: 15.9 cm2 LA A4 area: 20.2 cm2 RA vol: 51.8 ml LA length (vol): 5.0 cm RA : 28.2 ml/m2 LA vol: 91.6 ml IVC diam: 1.4 cm LA vol index: 49.9 ml/m2 RVDd major: 7.2 cm RVD1 (basal): 3.6 cm RVD2 (mid): 2.9 cm VIVIANA (plan): 0.72 cm2 Doppler Measurements & Calculations Ao V2 max: 402.1 cm/sec LVOT Max Anatoliy: 87.9 cm/sec Ao V2 mean: 283.2 cm/sec LV V1 max P.1 mmHg Ao max P.7 mmHg LV V1 VTI: 21.3 cm Ao mean P.9 mmHg IVVIANA(I,D): 1.1 cm2 Ao V2 VTI: 87.9 cm VIVIANA(V,D): 0.97 cm2 sev ratio: 0.24 VIVIANA indexed to BSA (cm^2/m^2): 0.59 MV E max anatoliy: 94.4 cm/sec TR max anatoliy: 258.1 cm/sec MV A max anatoliy: 90.9 cm/sec TR max P.6 mmHg MV E/A: 1.0 PA V2 max: 99.7 cm/sec Med Peak E' Anatoliy: 7.4 cm/sec PA V2 mean: 66.7 cm/sec E/E' med: 12.8 PA mean P.1 mmHg Lat Peak E' Anatoliy: 9.7 cm/sec PA Accel Time: 0.15 sec E/E' lat: 9.7 E/e' average: 11.3 MV dec time: 0.26 sec MV P1/2t: 77.4 msec MV P1/2t max anatoliy: 93.8 cm/sec SV(LVOT): 94.5 ml MVA(P1/2t): 2.8 cm2 Reading Physician:01:36 PM
== END ==
PROVIDERS: PCP Internal Medicine; Visit Provider Internal Medicine Cardiovascular Disease
DX: I08.3 Combined rheumatic disorders of mitral, aortic and tricuspid valves (principal)
CPT/HCPCS: 93306